=== PATIENT | female | born 1965 | race African-American/Black ===

== ENCOUNTER 2018-02-08 15:47 | Emergency (ER) | payer BC ==
[2018-02-08] MEDS ORDERED: IOHEXOL 300 MG/ML 100ML VIAL. IV (17:00)
[2018-02-08] MEDS: IOHEXOL 300 MG/ML 100ML VIAL. IV (17:00)
[2018-02-08] MEDS ORDERED: CONTRAST GIVEN MC (17:00)
[2018-02-08] MEDS: PANTOPRAZOLE IV PUSH 40 MG VIAL. IVP (17:03)
[2018-02-08] MEDS: IV NORMAL SALINE 1000ML BAG 1,000 ML IV (17:03)
[2018-02-08] MEDS: fentaNYL PF VIAL 100 MCG/2 ML VIAL IV (17:03)
[2018-02-08] MEDS: ONDANSETRON PF 4 MG/2 ML VIAL. IV (17:03)
[2018-02-08 17:16] LABS: ADD MAN DIFF? NO
[2018-02-08 17:18] LABS: BASO # 0.1 x10^3/uL (0.0-0.2); BASO % 1 % (0-3); EOS % 0 % (0-3); HEMATOCRIT 43.2 % (36.0-47.0); HEMOGLOBIN 15.2 g/dL (12.0-15.5); LYMPH # 2.4 x10^3/uL (1.0-4.8); LYMPH % 20 % (24-48); MEAN CORPUSCULAR HEMOGLOBIN 33 pg (25-35); MEAN CORPUSCULAR HGB CONC 35 g/dL (31-37); MEAN CORPUSCULAR VOLUME 94 fL (79-100); MONO # 0.9 x10^3/uL (0.0-1.1); MONO % 8 % (0-9); NEUT # 8.6 x10^3uL (1.8-7.7); NEUT % 72 % (31-73); PLATELET COUNT 251 x10^3/uL (140-400); RED BLOOD COUNT 4.59 x10^6/uL (3.50-5.40); RED CELL DISTRIBUTION WIDTH 13.8 % (11.5-14.5)
[2018-02-08 17:19] LABS: BILIRUBIN,URINE SMALL (NEG); CLARITY,URINE CLEAR; COLOR,URINE AMBER; GLUCOSE,URINE NEGATIVE (NEG); NITRITE,URINE NEGATIVE (NEG); PROTEIN,URINE 30 mg/dL (NEG-TRACE)
[2018-02-08] MEDS: LIDO:MAALOX:DONNATAL 1:1:1 15 ML SINGLE DOSE SWSW (17:25)
[2018-02-08 17:27] LABS: AMORPHOUS SEDIMENT,UR PRESENT /HPF; ANION GAP 11 (6-14); BACTERIA,URINE MODERATE /HPF (0-FEW); BLOOD UREA NITROGEN 21 mg/dL (7-20); BUN/CREATININE RATIO 23 (6-20); CALCIUM 9.7 mg/dL (8.5-10.1); CARBON DIOXIDE 29 mmol/L (21-32); CHLORIDE 100 mmol/L (98-107); CREATININE 0.9 mg/dL (0.6-1.0); GFR 79.9; GLUCOSE 139 mg/dL (70-99); POTASSIUM 3.3 mmol/L (3.5-5.1); SODIUM 140 mmol/L (136-145); SQUAMOUS EPITHELIAL CELL,UR MANY /LPF
[2018-02-08 17:34] LABS: ALBUMIN 4.5 g/dL (3.4-5.0); ALBUMIN/GLOBULIN RATIO 1.2 (1.0-1.7); ALK PHOS 90 U/L (46-116); ALT (SGPT) 26 U/L (14-59); AST (SGOT) 15 U/L (15-37); LIPASE 98 U/L (73-393); MAGNESIUM 2.1 mg/dL (1.8-2.4); TOTAL BILIRUBIN 0.6 mg/dL (0.2-1.0); TOTAL PROTEIN 8.3 g/dL (6.4-8.2)
[2018-02-08 17:37] LABS: TROPONINI < 0.017 ng/mL (0.000-0.055)
[2018-02-08] MEDS: FAMOTIDINE 20 MG TABLET. PO (18:27)
[2018-02-08] MEDS: PROMETHAZINE IM 25 MG/ML VIAL IM (18:47)
== END 2018-02-08 19:05 | disposition home or self-care (01) ==
LOC: ER 15:47
DX: K29.90 Gastroduodenitis, unspecified, without bleeding (principal); D72.829 Elevated white blood cell count, unspecified; E87.6 Hypokalemia; J45.909 Unspecified asthma, uncomplicated; F32.9 Major depressive disorder, single episode, unspecified; I10 Essential (primary) hypertension; Z90.49 Acquired absence of other specified parts of digestive tract; Z90.710 Acquired absence of both cervix and uterus; Z88.6 Allergy status to analgesic agent; Z88.8 Allergy status to other drugs, medicaments and biological substances; Z88.1 Allergy status to other antibiotic agents; Z88.5 Allergy status to narcotic agent
CPT/HCPCS: 36415; 74177; 80053; 81001; 83690; 83735; 84484; 85025; 87086; 96361; 96372; 96374; 96375; 99285-25; C9113; J2405; J2550; J3010; J7030; Q9967